=== PATIENT | male | born 1980 | race Caucasian/White ===

== ENCOUNTER 2019-09-24 21:55 | Emergency (ER) | payer SELFPAY ==
--- NOTE | 2019-09-24 22:07 | NUR ---
CALLED TO HARVINDER NOT IN WAITING ROOM
--- NOTE | 2019-09-24 22:23 | NUR ---
CALLED AGAIN TO TRIAGE STILL NO ANSWER. PT IS NOT IN WAITIN ROOM.
== END 2019-09-24 23:46 | disposition left against medical advice (07) ==
LOC: ER 22:05
DX: Z53.21 Procedure and treatment not carried out due to patient leaving prior to being seen by health care provider (principal)